=== PATIENT | male | born 1940 | race Caucasian/White ===

== ENCOUNTER 2018-08-31 22:31 | Emergency (ER) | payer OTHER ==
[~2018-08-31] VITALS: Ht 165.1 cm; Wt 81.6 kg
--- NOTE | 2018-08-31 22:39 | NUR ---
PT BIBRA FROM S/P WITNESSED SYNCOPE EPISODE. DENIES TRAUMA, PT WAS ASSISTED TO GROUND. PT HAD ONE EPISODE OF VOMITTING. PER RA, REC'D 1L NS BOLUS, NOTED HYPOTENSION. O2 SAT 91% ON RA, MD AWARE. APPLIED 4L NC, TOLERATED WELL O2 SAT NOW 97%. PT DENIES SOB, CHEST PAIN, ABDOMINAL PAIN. PT AAOX4. RESPIRATIONS EVEN AND UNLABORED. SKIN WARM AND INTACT. PT PLACED ON CONTINUOUS BACK TUFTER, WILL CONTINUE TO MONITOR
--- NOTE | 2018-08-31 22:48 | NUR ---
FASHION JOURNALIST AT BEDSIDE FOR BLOOD DRAW
[2018-08-31] MEDS ORDERED: ONDANSETRON HCL/PF 4 MG/2 ML VIAL ONE (22:50)
[2018-08-31 22:53] LABS: BASOPHILS % (AUTO) 0.3 % (0.0-2.0); EOSINOPHILS % (AUTO) 1.1 % (0.0-6.0); HEMATOCRIT 38 % (39-51); LYMPHOCYTES % (AUTO) 32.3 % (20.0-44.0); MEAN CORPUSCULAR HGB CONC 35 g/dl (31.0-36.0); MEAN CORPUSCULAR VOLUME 90 fL (80-96); MONOCYTES # (AUTO) 0.6 /CMM (0.1-1.30); MONOCYTES % (AUTO) 9.8 % (2.0-12.0); NEUTROPHILS # (AUTO) 3.5 /CMM (1.8-8.9); NEUTROPHILS % (AUTO) 56.5 % (43.0-81.0); PLATELET COUNT (AUTO) 132 /CMM (150-450); RED BLOOD CELL COUNT(AUTO) 4.18 MIL/uL (4.5-6.0); WHITE BLOOD COUNT (AUTO) 6.2 K/uL (4.3-11.0)
[2018-08-31] MEDS ORDERED: ONDANSETRON HCL/PF 4 MG/2 ML VIAL IVP ONE (23:00)
[2018-08-31] MEDS ORDERED: IV NS 0.9% 1,000 ML BAG IV ONE (23:00)
[2018-08-31 23:01] LABS: CALCIUM, SERUM 7.5 mg/dL (8.5-10.1); CARBON DIOXIDE 26 mmol/L (21-32); CHLORIDE 107 mmol/L (98-107); CREATININE 1.7 mg/dL (0.6-1.3); GLUCOSE 168 mg/dL (74-106); POTASSIUM 3.3 mmol/L (3.5-5.1); SODIUM SERUM 142 mmol/L (136-145); UREA NITROGEN, BLOOD 23 mg/dL (7-18)
[2018-08-31 23:07] LABS: ALANINE AMINOTRANSFERASE 43 U/L (12-78); ALBUMIN 2.9 g/dL (3.4-5.0); ALKALINE PHOSPHATASE 69 U/L (46-116); ASPARTATE AMINOTRANSFERASE 27 U/L (15-37); BILIRUBIN,DIRECT 0.1 mg/dL (0.0-0.2); BILIRUBIN,TOTAL 0.2 mg/dL (0.2-1.0); TOTAL PROTEIN, SERUM 6.1 g/dL (6.4-8.2)
--- NOTE | 2018-08-31 23:10 | NUR ---
RADIOLOGY AT BEDSIDE FOR CXR
[2018-09-01] MEDS ORDERED: IV NS 0.9% 1,000 ML BAG IV ONE
--- NOTE | 2018-09-01 00:06 | NUR ---
KATHERINE CHARLES AT [facility], ADVISED WILL CALL BACK.
[2018-09-01] MEDS ORDERED: CT SWABBABLE VALVE TRANS SET 1 EA INFUS.SET MC ONE (00:37)
[2018-09-01] MEDS ORDERED: IOHEXOL-350 100 ML VIAL IV ONE (00:37)
--- NOTE | 2018-09-01 00:53 | NUR ---
PT BROUGHT BY RADIOLOGY FOR CT
--- NOTE | 2018-09-01 01:03 | NUR ---
PT RETURNED FROM CT
--- NOTE | 2018-09-01 01:33 | NUR ---
SPOKE WITH KAYODE FROM [place] TO [facility]IL [place] MD
--- NOTE | 2018-09-01 02:16 | NUR ---
PT ABLE TO AMBULATE TO RESTROOM. STEADY GAIT. VITAL SIGNS STABLE.
--- NOTE | 2018-09-01 03:06 | NUR ---
PATIENT TBA [facility] ACCEPTED BY DR LEACH RN TO RN REPORT CALL ED [phone]
--- NOTE | 2018-09-01 03:40 | NUR ---
SPOKE WITH [facility], ETA FOR TRANSPORTATION [phone]
--- NOTE | 2018-09-01 03:45 | NUR ---
GAVE REPORT TO SONIA GARCIA FROM [facility] FOR [place]
--- NOTE | 2018-09-01 04:14 | NUR ---
[facility]A FOR TRANSPORT DELAYED TIL [id number] PER [facility].
[2018-09-01 04:32] VITALS: BP 111/61
--- NOTE | 2018-09-01 04:32 | NUR ---
GAVE REPORT TO RUDDY FROM [facility] FOR TRANSPORTATION [place]
== END 2018-09-01 04:34 | disposition short-term general hospital (02) ==
LOC: ER 22:35
DX: R55 Syncope and collapse (principal); F10.129 Alcohol abuse with intoxication, unspecified; I95.9 Hypotension, unspecified; E86.0 Dehydration; E78.5 Hyperlipidemia, unspecified; Y90.6 Blood alcohol level of 120-199 mg/100 ml
CPT/HCPCS: 36415; 71045; 71275; 80048; 80076; 80307; 84484; 85025; 85730; 87081; 93005; 96361; 96374; 99285; A4606; J2405; J7030 ×2; Q9967; G0480